=== PATIENT | female | born 1980 | race Caucasian/White ===

== ENCOUNTER 2022-02-21 19:21 | Emergency (ER) | payer MEDICAID ==
[~2022-02-21] VITALS: Ht 165.1 cm; Wt 260.8 kg
[2022-02-21 19:31] VITALS: BP 122/92
--- NOTE | 2022-02-21 19:48 | NUR ---
PT TAKEN TO XRAY
[2022-02-21] MEDS: traMADol 50 MG TAB PO ONE (19:54)
[2022-02-21] MEDS ORDERED: TRAM-748 PO (20:34)
[2022-02-21] MEDS ORDERED: NAPR-1703 PO (20:36)
--- NOTE | 2022-02-21 20:55 | NUR ---
Patient discharged with v/s stable. Written and verbal after care instructions given and explained. Patient alert, oriented and verbalized understanding of instructions. Wheel Chair Assisted with to car. All questions addressed prior to discharge. ID band removed. Patient advised to follow up with PMD. Rx of ULTRAM, NAPROZYN given. Patient educated on indication of medication including possible reaction and side effects. Opportunity to ask questions provided and answered.
== END 2022-02-21 20:55 | disposition home or self-care (01) ==
LOC: MED 19:21
DX: S93.601A Unspecified sprain of right foot, initial encounter (principal); Z79.1 Long term (current) use of non-steroidal anti-inflammatories (NSAID); Z79.891 Long term (current) use of opiate analgesic; X58.XXXA Exposure to other specified factors, initial encounter; Y93.01 Activity, walking, marching and hiking; Y92.89 Other specified places as the place of occurrence of the external cause; Y99.8 Other external cause status
CPT/HCPCS: 73630; 99283